=== PATIENT | female | born 1955 | race Caucasian/White ===

== ENCOUNTER → 2023-10-18 08:12 | Outpatient (BNVA) | payer MEDICARE, SELFPAY | PROVIDERS: Visit Provider Nurse Practitioner Family | DX: L71.8 Other rosacea (principal); L57.8 Other skin changes due to chronic exposure to nonionizing radiation; D23.72 Other benign neoplasm of skin of left lower limb, including hip; L82.1 Other seborrheic keratosis; D22.5 Melanocytic nevi of trunk; L81.4 Other melanin hyperpigmentation | CPT/HCPCS: 99213 ==

== ENCOUNTER → 2024-10-14 08:10 | Outpatient (BNVA) | payer MEDICARE, OTHER, SELFPAY | PROVIDERS: Visit Provider Nurse Practitioner Family | DX: L71.8 Other rosacea (principal); L57.8 Other skin changes due to chronic exposure to nonionizing radiation; D23.72 Other benign neoplasm of skin of left lower limb, including hip; L82.1 Other seborrheic keratosis; L81.4 Other melanin hyperpigmentation | CPT/HCPCS: 99214 ==

== ENCOUNTER 2025-01-29 12:14 | Emergency (ER) | payer MEDICARE, OTHER, SELFPAY ==
[2025-01-29 12:16] VITALS: BP 160/79; PULSE 72; RESP 20; TEMP 36.7; O2SAT 91
--- NOTE | 2025-01-29 12:22 | XRR_ITS ---
PROCEDURE INFORMATION: Exam: XR Right Wrist Exam date and time: 01/29/2025 12:37 PM Age: 70 years old Clinical indication: Injury or trauma; Other: Not specified; Blunt trauma (contusions or hematomas); Wrist; Right TECHNIQUE: Imaging protocol: Radiologic exam of the right wrist. Views: 3 or more views. COMPARISON: No relevant prior studies available. FINDINGS: Bones/joints: Comminuted impacted intra-articular fracture of the distal radius with volar tilt of the distal articular surface. There is a malalignment of the dominant fragments with the dominant distal fragment malaligned volarly. There is a comminuted fracture involving the distal ulna in the region of the neck and distal shaft. This also demonstrates dorsal angulation. No dislocation. Soft tissues: Marked soft tissue swelling is present. XR/XR wrist RT min 3V* [id number] IMPRESSION: Impacted comminuted intra-articular fracture of the distal radius with volar tilt of the distal articular surface and malalignment. Fracture of the distal ulna.
[2025-01-29 12:34] VITALS: BP 160/79; O2SAT 90
--- NOTE | 2025-01-29 13:01 | W.ED.EXTPRO ---
HPI - Extremity Problem General: Chief complaint: Extremity Injury, Upper Stated complaint: right wrist pain - fall Time Seen by Provider: 01/29/25 12:19 History of Present Illness: 70-year-old female presents with injury to the right wrist. Patient tripped and fell and injured her right wrist. There is obvious deformity. Patient was brought in via EMS in a Dani splint. Patient's last meal was around 738 this morning. She is unsure when her last tetanus was. She received 100mcg fentanyl in route. Associated symptoms: Deny fever(s) or rash Related Data Home Medications ?Medication ?Instructions ?Recorded ?Confirmed lisinopril 30 mg tablet 30 mg PO DAILY 11/07/22 01/29/25 amlodipine 5 mg tablet See Rx Instructions .Route .COMPLEX 01/29/25 01/29/25 ascorbic acid (vitamin C) 500 mg 500 mg PO DAILY 01/29/25 01/29/25 tablet (Vitamin C) cholecalciferol (vitamin D3) 50 50 mcg PO DAILY 01/29/25 01/29/25 mcg (2,000 unit) tablet (Vitamin D3) cranberry fruit 450 mg tablet 450 mg PO DAILY 01/29/25 01/29/25 (cranberry) ibuprofen 200 mg tablet (Advil) 200 mg PO Q6H PRN Fever Or Pain 01/29/25 01/29/25 metformin 500 mg tablet,extended 500 mg PO DAILY 01/29/25 01/29/25 release 24 hr Previous Rx's ?Medication ?Instructions ?Recorded hydrocodone 5 mg-acetaminophen 325 1 tab PO Q6H PRN pain #14 tabs 01/29/25 mg tablet Allergies Allergy/AdvReac Type Severity Reaction Status Date / Time meclizine (From Antivert) Allergy Unknown Unknown Verified 11/07/22 14:20 megestrol (From Megace) Allergy Unknown Unknown Verified 11/07/22 14:20 Review of Systems Const: Denies: fever(s) or chills Resp: Denies: dyspnea or productive cough GI: Denies: abdominal pain, nausea or vomiting Musc: Reports: other (Please see HPI) Skin/Breast: Denies: rash or pruritus PFSH ED PFSH: Medical History No pertinent past medical history Surgical History No pertinent past surgical history Social History Smoking and tobacco/nicotine status: never used tobacco/nicotine Procedures Orthopedic Fracture Reduction Fracture #1: Time Out Performed: Yes Side: right Fracture Reduction Location: radius Analgesia: procedural sedation Technique: direct manipulation Post Reduction X-rays Demonstrate: acceptable reduction Post-reduction neuro exam: intact Post-reduction vascular exam: intact Splint Applied: Yes Patient Tolerated Procedure: well Procedural Sedation ASA Class: II Time of Last PO Intake: 08:00 Preparation: front desk monitor applied, pulse oximeter, supplemental O2 applied, suction/airway equipment at bedside and IV secured Ketamine dose (mg): 100 Patient Tolerated Procedure: well Complications: none Course Vital Signs: Vital signs: Vital Signs Temperature 97.7 F 01/29/25 13:37 Pulse Rate 87 01/29/25 14:01 Respiratory Rate 23 H 01/29/25 14:01 Blood Pressure 185/96 01/29/25 14:01 Pulse Oximetry 97 01/29/25 14:01 Oxygen Delivery Me thod Nasal Cannula 01/29/25 14:01 Oxygen Flow Rate 3 01/29/25 14:01 MDM - Extremity (Nontraumatic) Medical Decision Making Patient's x-ray shows displaced comminuted fracture of the distal right radius and ulna. Patient had procedural sedation performed and a reduction showing improvement and reduction of the commuted comminuted fractures. Patient was splinted in a sugar-tong. Patient has some small abrasions over the area but do not appear to have an open fracture. I will have her start her on Augmentin empirically, patient discharged with hydrocodone for pain management. Patient to follow-up with Ortho early next week for definitive care. Patient recovered with no immediate complications with good neurovascular exam intact. Lab Data Radiology Impressions Wrist X-Ray 01/29/25 13:31 Impression: Reduction of comminuted fractures of distal right radius and ulna. Knee X-Ray 01/29/25 13:32 Impression: Negative right knee. All radiology interpretation(s) finalized by discharge Discharge Plan Discharge Clinical Impression: Distal radius fracture, right Condition: Stable Prescriptions: New hydrocodone-acetaminophen 5-325 mg tablet 1 tab PO Q6H PRN (Reason: pain) Qty: 14 0RF amoxicillin-pot clavulanate [Augmentin] 500-125 mg tablet 1 tab PO BID Qty: 10 0RF No Action lisinopril 30 mg tablet 30 mg PO DAILY amlodipine 5 mg tablet See Rx Instructions .ROUTE .COMPLEX Rx Instructions: TAKE 1 TABLET BY MOUTH ONCE DAILY IF THE MAJORITY OF BLOOD PRESSURE READINGS ARE GREATER THAN 140/90. EITHER NUMBER ibuprofen [Advil] 200 mg Tablet 200 mg PO Q6H PRN (Reason: Fever Or Pain) metformin 500 mg tablet extended release 24 hr 500 mg PO DAILY ascorbic acid (vitamin C) [Vitamin C] 500 mg Tablet 500 mg PO DAILY cholecalciferol (vitamin D3) [Vitamin D3] 50 mcg (2,000 unit) Tablet 50 mcg PO DAILY cranberry 450 mg Tablet 450 mg PO DAILY Rx Instructions: administer with a meal Discharge Diet: Usual diet Patient Instructions: Arm Fracture in Adults (DC), Wrist Fracture in Adults (ED) Activity Restrictions/Additional Instructions: Please keep arm elevated and in a sling. Please follow-up with Ortho early next week to arrange for your surgery. We did put in a consultation for you. Return to the ER with any concerns. Print Language: Luxembourgish Coding Level of Care Code ED Grav[employer] Press Set Up Operator for Jenaro Schmid
[2025-01-29] MEDS: tetanus-dipt-pertussis 0.5 mL SDV IM (13:03)
--- NOTE | 2025-01-29 13:31 | XR_ITS ---
WS: [id number] Right wrist, 3 views, 01/29/2025, 1345 hours Clinical Data: post reduction Comparison: Right wrist, 01/29/2025, 1241 hours Findings: There are comminuted fractures of the distal right radius and ulna are reduced with a fiberglass cast. The remainder of the right wrist shows no abnormalities. XR/XR wrist RT 2V [id number] Impression: Reduction of comminuted fractures of distal right radius and ulna.
--- NOTE | 2025-01-29 13:32 | XR_ITS ---
WS: [id number] Right knee, 3 views, 01/29/2025 Clinical Data: injury Comparison: None. Findings: No fractures or dislocations are seen. The joint spaces are normal. The patella is intact. The soft tissues are unremarkable. XR/XR knee RT 3V* [id number] Impression: Negative right knee.
[2025-01-29 13:37] VITALS: BP 127/66; PULSE 85; RESP 20; TEMP 36.5; O2SAT 97
[2025-01-29] MEDS: ketamine 100 mg/mL Inj 5 mL IV (13:43)
[2025-01-29 14:01] VITALS: BP 185/96; PULSE 87; RESP 23; O2SAT 97
--- NOTE | 2025-01-29 14:33 | DCPLANNER ---
messaged ortho for er f/u
[2025-01-29 16:07] VITALS: BP 127/74; PULSE 86; RESP 16; O2SAT 93
== END 2025-01-29 16:08 ==
PROVIDERS: Emergency Provider Student in an Organized Health Care Education/Training Program
DX: S52.501A Unspecified fracture of the lower end of right radius, initial encounter for closed fracture (principal); Z79.84 Long term (current) use of oral hypoglycemic drugs; W01.0XXA Fall on same level from slipping, tripping and stumbling without subsequent striking against object, initial encounter
CPT/HCPCS: 25605; 73100; 73110; 73562; 90715; 94799; 99152; 99285; J3490

== ENCOUNTER → 2025-02-03 08:00 | Outpatient (BNVA) | payer MEDICARE, OTHER, SELFPAY | PROVIDERS: PCP Registered Nurse; Visit Provider Orthopaedic Surgery | DX: S52.531A Colles' fracture of right radius, initial encounter for closed fracture (principal); W19.XXXA Unspecified fall, initial encounter | CPT/HCPCS: 36415; 73110; 80053; 81001; 85025; 99204 ==

== ENCOUNTER 2025-02-04 11:12 | Day surgery (SDC) | payer MEDICARE, OTHER, SELFPAY ==
[2025-02-04] VITALS (16 sets, daily range): BP systolic 111–155; BP diastolic 70–95; PULSE 71–80; RESP 14–166; TEMP 36.1–36.6; O2SAT 91–98; BMI 29.9
[2025-02-04 11:59] LABS: Glucose Point of Care 120 mg/dL (70-110)
--- NOTE | 2025-02-04 12:25 | ANES.PREANE2 ---
Pre-Anesthetic Assessment Height/Weight: Height 1.65 m Weight 81.647 kg Preop Diagnosis: Right distal radius fracture Operation Date: 02/04/25 13:15 Proposed Procedures p ORIF Wrist ORIF Distal Radius(Right) - Elmer Wade DO Familial anesthetic complications: NOne Was Beta Marv taken within 24 hours: N/A Was Clonidine taken within 24 hours: N/A Last intake: Intake Last Liquid Date 02/03/25 Last Liquid Time 18:30 Last Solid Date 02/03/25 Last Solid Time 18:30 Social No alcohol and No tobacco Exam alert, oriented x 3, clear to auscultation bilaterally and regular rate & rhythm Airway Mallampati: Class II Dentition: caps Pulmonary Asthma CV/HEM Hypertension Metabolic Diabetes Mellitus Anesthetic Plan ASA status: 3 Anesthesia: General and Regional (specify below) Risk of > 500 ml blood loss (7ml/kg in children): No Medications/Allergies Home Medications ?Medication ?Instructions ?Recorded ?Confirmed ?Last Taken ?Type lisinopril 30 mg tablet 30 mg PO DAILY 11/07/22 02/03/25 02/03/25 History amlodipine 5 mg tablet See Rx Instructions .Route 01/29/25 02/03/25 Unknown History .COMPLEX PRN b/p amoxicillin 500 mg-potassium 1 tab PO BID #10 tabs 01/29/25 02/03/25 02/03/25 Rx clavulanate 125 mg tablet (Augmentin) ascorbic acid (vitamin C) 500 mg 1,000 mg PO DAILY 01/29/25 02/03/25 02/03/25 History tablet (Vitamin C) cholecalciferol (vitamin D3) 50 50 mcg PO DAILY 01/29/25 02/03/25 Unknown History mcg (2,000 unit) tablet (Vitamin D3) cranberry fruit 450 mg tablet 450 mg PO DAILY 01/29/25 02/03/25 02/03/25 History (cranberry) hydrocodone 5 mg-acetaminophen 325 1 tab PO Q6H PRN pain #14 tabs 01/29/25 02/04/25 02/03/25 00:00 Rx mg tablet ibuprofen 200 mg tablet (Advil) 200 mg PO Q6H PRN Fever Or Pain 01/29/25 02/03/25 01/28/25 20:00 History metformin 500 mg tablet,extended 500 mg PO DAILY 06/02/03/25 02/03/25 History release 24 hr albuterol 90 mcg/actuation aerosol 90 mcg inhalation PRN PRN Wheezing 02/03/25 02/03/25 Unknown History inhaler Allergies Allergy/AdvReac Type Severity Reaction Status Date / Time meclizine (From Antivert) Allergy Unknown Unknown Verified 02/03/25 08:14 megestrol (From Megace) Allergy Unknown Unknown Verified 02/03/25 08:14 [facility] Anesthesia Medical History No pertinent past medical history Surgical History No pertinent past surgical history Social History Smoking and tobacco/nicotine status: never used tobacco/nicotine Anesthesia Procedures Nerve Block Nerve Block 1: Main Anesthesia: general anesthesia Time Out Performed: Yes Consent: requested by attending/covering physician, from patient, from other, risks and benefits reviewed and patient agrees to proceed Nerve block location: supraclavicular (R) Anesthesia monitors applied: pulse oximetry, EKG and BP cuff Nerve block position: semi sitting Anesthetic Used: ropivicaine 0.5% (30 ml) and with decadron (4 mg) Ultrasound used to: recognize landmarks, visualize and ID brachial plexus and in supraclavicular region Nerve Stimulator Used?: No Interscalene/Femoral BLK: 4 stimuplex 21 g needle used for position and inplane approach, visualize local anesthetic spread and no vascular puncture identified Injection: neg aspiration of heme Patient Tolerated Procedure: well Complications: none Additional Comments: Fentanyl sedation for comfort while positioning
[2025-02-04] MEDS: sodium chloride 0.9% 1,000 ML 30 ML IV (12:40)
[2025-02-04] MEDS: fentaNYL 50 mcg/mL INJ 2mL IVP (12:50)
--- NOTE | 2025-02-04 13:04 | SUR.PREOP ---
12:45 RIGHT INTRASCALENE NERVE BLOCK PERFORMED BY DOCTOR Lopez, USING 30ml OF 0.5% ROPIVACAINE WITH 4mg OF DECADRON. PT ON CITY DESIGNER SHOWING NSR. TOLERATED PROCEDURE WELL. MEDICATED FOR RIGHT ARM PAIN.
--- NOTE | 2025-02-04 13:30 | W.PM.OPSUD ---
Surgery/Procedure H&P Update DATE OF PROCEDURE: February 04, 2025 DATE H&P PERFORMED: 02/03/25 H&P UPDATE INFORMATION: I have reviewed H&P completed within last 30 days, I have examined patient prior to procedure and No changes to prior documentation PREOP DIAGNOSIS: Right distal radius fracture PLANNED PROCEDURE: Operation Date: 02/04/25 13:15 Proposed Procedures p ORIF Wrist ORIF Distal Radius(Right) - Elmer Wade DO
[2025-02-04] MEDS: ceFAZolin 2,000 mg SDV 2000 MG IVP (13:31)
--- NOTE | 2025-02-04 14:31 | PM.OP ---
Operative Report Date of procedure: February 04, 2025 Pre-op diagnosis: Right intra-articular distal radius fracture greater than 3 pieces Post-op diagnosis: same Procedure done: Open reduction internal fixation of right intra-articular distal radius fracture with greater than 3 pieces Surgeon: Elmer Wade DO Estimated blood loss (mL): 5 Procedure: Open reduction internal fixation of right intra-articular distal radius fracture with greater than 3 pieces Please brought to the op suite after an Gonasi was placed in the supine position. Allergies impingement well-padded. Patient's prepped in a muscle fashion. Skin incision was made over the volar wrist. The FCR and radial artery were identified. The pronator teres was reflected ulnarly. Fracture was identified and reduced. A Arthrex plate was placed. Fracture was volarly displaced so that a screw was placed into the shaft first to buttress the fracture. Fractures were then reduced again and there were 3 spots in the intra-articular pieces as well as a styloid piece. These were all reduced and then 4 screws were placed distally these were all locking screws. And then another locking screw was placed proximally into the plate. AP lateral fluoroscopy showed the fracture and hardware in good position. Wounds were irrigated and closed with Vicryl Monocryl suture. Patient was placed in a volar splint and transferred to the PACU in stable condition.
--- NOTE | 2025-02-04 15:18 | XR_ITS ---
WS: [id number] Exam: XR wrist RT min 3V* [id number] Date/Time of Exam: 02/04/2025 3:18 PM Reason For Exam: or pic, orif AP and lateral intraoperative C-arm images of the RIGHT wrist are submitted. The images depict volar plate and screw fixation involving a comminuted fracture of the distal radius. Alignment is satisfactory for healing. Also noted is a oblique fracture of the distal ulna.
[2025-02-04] MEDS: HYDROcodone-acetaminophen 5-325 mg Tablet 1 TAB PO (15:22)
--- NOTE | 2025-02-04 17:15 | ANE.PACU2 ---
Inpatient post-anesthesia follow up: Airway intact: Yes Vital signs: Temperature 97.9 F Pulse Rate 77 Respiratory Rate 166 Blood Pressure 131/79 Pulse Oximetry 98 Oxygen Delivery Me thod Room Air Oxygen Flow Rate Fraction of Inspir ed Oxygen Hydration adequate: Yes Nausea and vomiting: No Pain level: 1 Mental status: Baseline
== END 2025-02-04 17:15 | disposition home or self-care (01) ==
PROVIDERS: PCP Registered Nurse; Visit Provider Orthopaedic Surgery
PROC: (CPT 25609; principal; 2025-02-04 13:05)
DX: S52.531A Colles' fracture of right radius, initial encounter for closed fracture (principal); W19.XXXA Unspecified fall, initial encounter; J45.909 Unspecified asthma, uncomplicated; I10 Essential (primary) hypertension; E11.9 Type 2 diabetes mellitus without complications
CPT/HCPCS: 25609; 36416; 73110; 76000; 82962; C1713; J0690; J1100; J2250; J2405; J2704; J2795; J3010; J7030; J9999

== ENCOUNTER 2025-02-05 19:09 | Emergency (ER) | payer MEDICARE, OTHER, SELFPAY ==
[2025-02-05 19:11] VITALS: BP 147/85; PULSE 78; TEMP 36.4; O2SAT 97; BMI 30.7
--- OUTSIDE RECORDS SUMMARY | 2025-02-05 19:14 | XMS_ITS | Patient Health Record ---
Author Organization Emily oliveira [facility] Address [address] [address] [place] [address] Care Team Providers Care Consulting Manager Name Role Phone NUSRAT CHADWICK Unavailable [phone] Allergies No Known Allergies Reason For Referral No Information Medications Medication SIG (Take, Route, Fr equency, Duration) Notes Start Date End Date Status Lisinopril 40 MG 1 tablet Orally Once a day Active Social History Tobacco Use: Social History Observation Description Date Details (start date - stop date) Never Smoker NA - NA Tobacco Use: Question Answer Notes Are you a: never tobacco user Plan Of Treatment Pending Test Test Name Order Date Cologuard 10/04/2021 Breast mammogram screen bilateral 2021 CARDIO IQ(R) VITAMIN D, 25 HYDROXY THINPREP PAP RFX HR HPV 10/04/2021 Insurance Providers Payer Name Payer Address Payer Phone Subscriber Number Group Number Insured Name Patient Relationship to Insured Coverage Start Date Coverage End Date SELF PAY (NO INSURAN CE) Yadi Huber Self - patient is the insured Medical (General) History Medical History History ICD Code hyperlipidemia Surgical History Surgery Date(Month/Year) partial hysterectomy 2007
--- NOTE | 2025-02-05 20:27 | XRR_ITS ---
PROCEDURE INFORMATION: Exam: XR Right Wrist Exam date and time: 02/05/2025 9:04 PM Age: 70 years old Clinical indication: Pain; Wrist; Right; Prior surgery; Surgery date: Post-operative (0-2 days); Surgery type: Orif; Additional info: Pain post op TECHNIQUE: Imaging protocol: Radiologic exam of the right wrist. Views: 3 or more views. COMPARISON: CR XR wrist RT min 3V* [id number] 01/29/2025 12:37 PM FINDINGS: Bones/joints: Postsurgical changes related to ORIF (volar plate) involving the distal radius. The hardware appears intact. There is near anatomic alignment. Fractures through the distal ulna or also noted with also near anatomic alignment. No definite new fracture. Soft tissues: Normal. Other findings: Cast material overlying the right upper extremity. XR/XR wrist RT min 3V* [id number] IMPRESSION: As above.
[2025-02-05 20:56] VITALS: RESP 18
[2025-02-05] MEDS: oxyCODONE 5 mg IR Tab/Cap 10 MG PO (20:56)
[2025-02-05 20:59] VITALS: RESP 18
[2025-02-05] MEDS: oxyCODONE 5 mg IR Tab/Cap PO (20:59)
--- NOTE | 2025-02-05 21:03 | PC.NURSE ---
Nurse Olivares TUCK POINTER HELPER gave one oxycodone and dropped the other oxycodone on the ground. Nurse Olivaers wasted the dropped oxycodone with nurse Simons RN. Nurse Simons ordered another 5mg oxycodone per CORRUGATED SHEET MATERIAL SHEETER Wittke verbal order.
--- NOTE | 2025-02-05 22:47 | W.ED.EXTPRO ---
HPI - Extremity Problem General: Chief complaint: Extremity Injury, Upper Stated complaint: Post Surgery 02/04/25 R wrist painful Time Seen by Provider: 02/05/25 20:30 History of Present Illness: Patient is a 70-year-old female that had right open reduction internal fixation distal radius yesterday with orthopedics that comes in complaining of pain. She did contact orthopedist, that noted she should remove her cast and be seen further in the emergency room. She states that her pain pill has not fully worked since she has been dismissed from the hospital. She states her main issue is pain. She does have some localized swelling, but mainly complains of pain. She is right-handed. No fevers. Related Data Home Medications ?Medication ?Instructions ?Recorded ?Confirmed lisinopril 30 mg tablet 30 mg PO DAILY 11/07/22 02/03/25 amlodipine 5 mg tablet See Rx Instructions .Route 01/29/25 02/03/25 .COMPLEX PRN b/p ascorbic acid (vitamin C) 500 mg 1,000 mg PO DAILY 01/29/25 02/03/25 tablet (Vitamin C) cholecalciferol (vitamin D3) 50 50 mcg PO DAILY 01/29/25 02/03/25 mcg (2,000 unit) tablet (Vitamin D3) cranberry fruit 450 mg tablet 450 mg PO DAILY 01/29/25 02/03/25 (cranberry) ibuprofen 200 mg tablet (Advil) 200 mg PO Q6H PRN Fever Or Pain 01/29/25 02/03/25 metformin 500 mg tablet,extended 500 mg PO DAILY 01/29/25 02/03/25 release 24 hr albuterol 90 mcg/actuation aerosol 90 mcg inhalation PRN PRN Wheezing 02/03/25 02/03/25 inhaler Previous Rx's ?Medication ?Instructions ?Recorded amoxicillin 500 mg-potassium 1 tab PO BID #10 tabs 01/29/25 clavulanate 125 mg tablet (Augmentin) hydrocodone 5 mg-acetaminophen 325 1 - 2 tab PO .Q4-6H #40 tabs 02/04/25 mg tablet Allergies Allergy/AdvReac Type Severity Reaction Status Date / Time meclizine (From Antivert) Allergy Unknown Unknown Verified 02/05/25 19:21 megestrol (From Megace) Allergy Unknown Unknown Verified 02/05/25 19:21 PFSH ED PFSH: Medical History No pertinent past medical history Surgical History No pertinent past surgical history Social History Smoking and tobacco/nicotine status: never used tobacco/nicotine Physical Exam Const: COMMON NORMALS: patient oriented x3 HENMT: COMMON NORMALS: normocephalic and atraumatic HEAD & SCALP: normocephalic and atraumatic Eye: COMMON NORMALS: Equal, round and reactive pupils present and EOMs intact bilaterally PUPIL: Yes Equal, round and reactive pupils present Lymph: LYMPHATIC: no lymphadenopathy noted Resp: COMMON NORMALS: normal respiratory effort, No use of accessory muscles and clear to auscultation bilaterally EFFORT & INSPECTION: Yes able to speak in complete sentences AUSCULTATION: clear to auscultation bilaterally Cardio: COMMON NORMALS: regular rate and regular rhythm RATE: regular rate RHYTHM: regular rhythm GI: COMMON NORMALS: Normal to inspection, nondistended, normoactive bowel sounds present : COMMON NORMALS: Yes no CVA tenderness BLADDER/KIDNEY EXAM: Yes no CVA tenderness Back/Pelvis: COMMON NORMALS: no CVA tenderness Extremity: COMMON NORMALS: no clubbing, cyanosis or edema RIGHT UPPER EXTREMITY: Yes upper arm Right upper arm: Yes inspection (bronzing, minimal sparks ecchymosis), Yes palpation (Pain along area of skin with sutures, edema +1) and Yes neurovascular exam (Intact) Neuro: COMMON NORMALS: patient oriented x3 and CN's II-XII intact bilaterally Psych: COMMON NORMALS: mental status grossly normal, Normal thought process present and cooperative THOUGHT PROCESS: Normal thought process present Skin: COMMON NORMALS: turgor normal GENERAL SKIN EXAM: turgor normal and ecchymosis Course Vital Signs: Vital signs: Vital Signs Temperature 97.6 F 02/05/25 19:11 Pulse Rate 89 02/05/25 23:04 Respiratory Rate 18 02/05/25 23:04 Blood Pressure 142/87 02/05/25 23:04 Pulse Oximetry 98 02/05/25 23:04 Oxygen Delivery Me thod Room Air 02/05/25 19:11 MDM - Extremity (Nontraumatic) Medical Decision Making Patient removed her cast, and came in for further evaluation. She has good pulses. I do not have concern for compartment syndrome. I will place her in a gutter splint, give her oxycodone x 1, and send her back to her orthopedist to manage her pain. She ended up having additional morphine x 1 since she was placed in a splint here in the ED. Discussed with patient that we cannot control her pain medication, and she will need to work through this with the ordered pieces. Lab Data Radiology Impressions Wrist X-Ray 02/05/25 20:27 IMPRESSION: As above. All radiology interpretation(s) finalized by discharge ED provider radiology interpretation(s): No new fracture Discharge Plan Discharge Patient Disposition: Home Clinical Impression: Distal radius fracture, right, Acute pain of right wrist Condition: Stable Prescriptions: No Action lisinopril 30 mg tablet 30 mg PO DAILY albuterol 90 mcg/actuation aerosol 90 mcg inhalation PRN PRN (Reason: Wheezing) amlodipine 5 mg tablet See Rx Instructions .ROUTE .COMPLEX PRN (Reason: b/p) Rx Instructions: TAKE 1 TABLET BY MOUTH ONCE DAILY IF THE MAJORITY OF BLOOD PRESSURE READINGS ARE GREATER THAN 140/90. EITHER NUMBER ibuprofen [Advil] 200 mg Tablet 200 mg PO Q6H PRN (Reason: Fever Or Pain) metformin 500 mg tablet extended release 24 hr 500 mg PO DAILY ascorbic acid (vitamin C) [Vitamin C] 500 mg Tablet 1,000 mg PO DAILY cholecalciferol (vitamin D3) [Vitamin D3] 50 mcg (2,000 unit) Tablet 50 mcg PO DAILY cranberry 450 mg Tablet 450 mg PO DAILY Rx Instructions: administer with a meal amoxicillin-pot clavulanate [Augmentin] 500-125 mg tablet 1 tab PO BID Qty: 10 0RF hydrocodone-acetaminophen 5-325 mg tablet 1 - 2 tab PO .Q4-6H Qty: 40 0RF Discharge Orders: Discharge ED (Routine); Ordered 02/05/25 Ordered By: Tracy Garner Referrals: Gena Tidwell [Primary Care Provider, Family Practice] Discharge Diet: Usual diet Discharge Activity: Limit activity as instructed Patient Instructions: Opioid Safety, Pain Management, Patient Portal & Ester Instructions Activity Restrictions/Additional Instructions: No activity to your right arm. Call your doctor tomorrow morning when they open up to follow-up on your plan, and change of any of your pain medications. The ER will not be able to change or manage your pain medications. Keep your splint in place until orthopedics follows up and sees you tomorrow, and makes a plan Return to ED with increasing swelling, increasing pain You may utilize ibuprofen 400 mg tomorrow am when you take your pain medication. Print Language: [place] Coding Level of Care Code ED Hearing Care Professional for Jenaro Schmid
[2025-02-05 23:04] VITALS: BP 142/87; PULSE 89; RESP 18; O2SAT 98
== END 2025-02-05 23:06 | disposition home or self-care (01) ==
PROVIDERS: Emergency Provider Physician Assistant; PCP Registered Nurse
DX: S52.501D Unspecified fracture of the lower end of right radius, subsequent encounter for closed fracture with routine healing (principal); G89.18 Other acute postprocedural pain; X58.XXXD Exposure to other specified factors, subsequent encounter
CPT/HCPCS: 73110; 99283; J9999

== ENCOUNTER → 2025-02-10 08:18 | Outpatient (BNVA) | payer MEDICARE, OTHER, SELFPAY | PROVIDERS: PCP Registered Nurse; Visit Provider Orthopaedic Surgery | DX: Z98.890 Other specified postprocedural states (principal); Z46.89 Encounter for fitting and adjustment of other specified devices | CPT/HCPCS: 73110; 99024 ==

== ENCOUNTER → 2025-02-17 09:08 | Outpatient (BNVA) | payer MEDICARE, OTHER, SELFPAY | PROVIDERS: PCP Family Medicine; Visit Provider Orthopaedic Surgery | DX: Z98.890 Other specified postprocedural states (principal) | CPT/HCPCS: 73110; 99024 ==

== ENCOUNTER → 2025-03-03 14:00 | Outpatient (BNVA) | payer MEDICARE, OTHER, SELFPAY | PROVIDERS: PCP Family Medicine; Visit Provider Orthopaedic Surgery | DX: Z98.890 Other specified postprocedural states (principal) | CPT/HCPCS: 73110; 99024 ==